=== PATIENT | male | born 1970 | race Caucasian/White ===

== ENCOUNTER 2024-01-22 17:34 | Emergency (ER) | payer BC ==
[2024-01-22] MEDS: Amoxicillin/Clavulanate K 875-125 MG Tab PO ONE (18:45)
[2024-01-22] MEDS: Diphtheria,Pertussis(Acell),Tetanus Vaccine 0.5 ML Syringe IM ONE (18:45)
[2024-01-22] MEDS: Lidocaine 1% 5 ML VIAL INJECT ONE (18:46)
== END 2024-01-22 19:33 | disposition home or self-care (01) ==
LOC: MW.ED 17:34
DX: S61.451A Open bite of right hand, initial encounter (principal); Z75.8 Other problems related to medical facilities and other health care; Z23 Encounter for immunization; W54.0XXA Bitten by dog, initial encounter
CPT/HCPCS: 12001; 90471; 90715; 99283; A9270; J3490